=== PATIENT | female | born 1945 | race Caucasian/White ===

== ENCOUNTER 2019-12-14 09:09 | Outpatient (CLI) | payer MEDICARE, BC ==
[2019-12-14] MEDS ORDERED: metformin (10:25)
[2019-12-14] MEDS ORDERED: symbicort (10:25)
[2019-12-14] MEDS ORDERED: ALBU1.25 NEB (10:25)
[2019-12-14] MEDS ORDERED: MONT10TA6 PO (10:25)
[2019-12-14] MEDS ORDERED: gabapentin (10:25)
[2019-12-14] MEDS ORDERED: losartan (10:25)
[2019-12-14] MEDS ORDERED: ASPI-496 PO (10:25)
[2019-12-14] MEDS ORDERED: ALBU8.5H8 INH (10:25)
[2019-12-14] MEDS ORDERED: BIMA2.5D LEFTEYE (10:25)
[2019-12-14] MEDS ORDERED: lovastatin (10:25)
[2019-12-14] MEDS ORDERED: BRIN10DR EACHEYE (10:25)
[2019-12-14 10:40] LABS: MICROSCOPIC NOT IND
[2019-12-14 10:41] LABS: BASOPHILS # (AUTO) 0.04 x10^3/uL (0-0.1); BASOPHILS % (AUTO) 1 % (0-1); EOSINOPHILS # (AUTO) 0.47 x10^3/uL (0-0.4); EOSINOPHILS % (AUTO) 10 % (1-7); LYMPHOCYTES # (AUTO) 1.61 x10^3/uL (1-3.4); LYMPHOCYTES % (AUTO) 32 % (22-44); MD NO; MEAN CORPUSCULAR HEMOGLOBIN 27.7 pg (27.0-34.8); MEAN CORPUSCULAR HGB CONC 32.9 g/dL (32.4-35.8); MEAN PLATELET VOLUME 9.6 fL (7.4-10.4); MONOCYTES # (AUTO) 0.52 x10^3/uL (0.2-0.8); MONOCYTES % (AUTO) 11 % (2-9); NEUTROPHILS # (AUTO) 2.33 x10^3/uL (1.8-6.8); NEUTROPHILS % (AUTO) 47 % (42-75); PLATELET COUNT 128 x10^3/uL (130-400); RED BLOOD COUNT 4.98 x10^6/uL (3.82-5.3); RED CELL DISTRIBUTION WIDTH 14.3 % (9.6-15.2)
[2019-12-14 10:50] LABS: INTERNATIONAL NORMALIZED RATIO 0.95 (0.93-1.1); PROTHROMBIN TIME 10.1 Seconds (9.6-11.5)
[2019-12-14 10:52] LABS: ALBUMIN 3.7 g/dL (3.4-5.0); ANION GAP 7 mmol/L (5-15); CALCIUM 8.8 mg/dL (8.5-10.1); CHLORIDE 108 mmol/L (98-107)
[2019-12-14 10:55] LABS: ALANINE AMINOTRANSFERASE 48 U/L (12-78); ALKALINE PHOSPHATASE 85 U/L (45-117); BILIRUBIN,TOTAL 0.5 mg/dL (0.2-1.0); CREATININE 0.84 mg/dL (0.55-1.02); TOTAL PROTEIN 6.8 g/dL (6.4-8.2)
[2019-12-24] MEDS ORDERED: LOVA40TA2 PO (09:38)
[2019-12-24] MEDS ORDERED: METF500T17 PO (09:38)
[2019-12-24] MEDS ORDERED: LOSA50TA14 PO (09:38)
[2019-12-24] MEDS ORDERED: BUDE10.2 INH (09:38)
[2019-12-24] MEDS ORDERED: INSU100V8 SQ (09:38)
[2019-12-24] MEDS ORDERED: GABA600T7 PO (09:38)
[2019-12-24] MEDS ORDERED: PANT40TA5 PO (09:38)
[2019-12-24] MEDS ORDERED: IPRA30SP NAS (09:38)
[2019-12-24] MEDS ORDERED: INSU100C SQ-INSULIN (09:38)
[2019-12-24] MEDS ORDERED: BRIN8DRO EACHEYE (09:38)
[2019-12-27] MEDS ORDERED: HYDR-3246 PO (09:32)
[2019-12-27] MEDS ORDERED: TIZA2TAB4 PO (09:32)
== END 2019-12-14 23:59 | disposition home or self-care (01) ==
LOC: STAR 09:09
PROVIDERS: ATTEND Neurological Surgery
DX: Z01.818 Encounter for other preprocedural examination (principal); M48.061 Spinal stenosis, lumbar region without neurogenic claudication
CPT/HCPCS: 36415; 71046; 80053; 81003; 83036; 85025; 85610; 85730; 93005; U0001-CS